=== PATIENT | female | born 1965 | race Hispanic/Latino ===

== ENCOUNTER 2021-06-27 04:34 | Observation (INO) | payer OTHER ==
[2021-06-27 05:39] VITALS: BMI 34.2
[2021-06-27] MEDS ORDERED: Ondansetron PF 4 MG/2 ML Vial IVP PRN (05:49)
[2021-06-27] MEDS ORDERED: Senokot S 8.6-50 MG TAB PO PRN (05:49)
[2021-06-27] MEDS ORDERED: Ondansetron ODT 4 MG TAB PO PRN (05:49)
[2021-06-27] MEDS ORDERED: Acetaminophen 325 MG TAB PO PRN (05:49)
[2021-06-27] MEDS ORDERED: Potassium Chloride 20 MEQ TAB PO SCH (06:00)
[2021-06-27] MEDS ORDERED: FLU VACC QS2021-22(6MOS UP)/PF 60 MCG/0.5 ML SYRINGE IM ONE (06:15)
[2021-06-27] MEDS ORDERED: Levothyroxine Sodium 75 MCG TAB PO SCH (06:30)
[2021-06-27 06:39] LABS: Anion Gap 11 mmol/L (10-20); BUN (Urea Nitrogen) 11 mg/dL (9.8-20.1); Calc. Creatinine Clearance 146 mL/min (70-130); Calcium 8.8 mg/dL (7.8-10.44); Carbon Dioxide 26 mmol/L (22-29); Cardiac Risk 3.8 (Less than 4.5); Chloride 104 mmol/L (98-107); Cholesterol 142 mg/dl (< 200 Desired); Glucose 188 mg/dL (70-105); HDL Cholesterol 37 mg/dL (>60 Neg Risk); LDL Cholesterol, Calculated 83 mg/dL; Magnesium 1.6 mg/dL (1.6-2.6); Potassium 3.2 mmol/L (3.5-5.1); Sodium 138 mmol/L (136-145); Triglycerides 111 mg/dL (Less than 150)
[2021-06-27 06:44] LABS: Troponin I Less than 0.010 ng/mL (< 0.028)
[2021-06-27] MEDS: metFORMIN XR 500 MG TAB PO SCH ×2 (08:58→17:23)
[2021-06-27] MEDS: Metoprolol Tartrate 25 MG TAB PO SCH ×2 (08:59→09:00)
[2021-06-27] MEDS ORDERED: Aspirin 81 mg Enteric Coated Tablet PO SCH ×2 (09:00)
[2021-06-27] MEDS ORDERED: Cholecalciferol 1,000 UNITS (25 MCG) TAB PO SCH (09:00)
[2021-06-27] MEDS ORDERED: FLUoxetine HCl 20 MG CAP PO SCH (09:00)
[2021-06-27] MEDS ORDERED: Gabapentin 300 MG CAP PO SCH (09:00)
[2021-06-27] MEDS ORDERED: pyridOXINE 50 MG (B6) TAB PO SCH (09:00)
[2021-06-27] MEDS ORDERED: Enoxaparin Sodium 40 MG/0.4 ML SYRINGE SC SCH (09:00)
[2021-06-27] MEDS ORDERED: Apixaban 5 MG TAB PO SCH (09:00)
[2021-06-27] MEDS ORDERED: Dextrose 5% in Water 1,000 ML IV PRN (11:27)
[2021-06-27] MEDS ORDERED: Dextrose 50% Abboject 50 ML SYRINGE SLOW IVP PRN (11:27)
[2021-06-27] MEDS ORDERED: Lantus 1000 UNITS/10 ML VIAL SC SCH (11:45)
[2021-06-27] MEDS: HumaLOG 300 UNITS/3 ML VIAL SC PRN ×2 (11:59→17:22)
[2021-06-27 13:02] LABS: Hemoglobin A1c 11.7 % (4.0-6.0)
[2021-06-27 16:49] LABS: SARS-CoV-2 PCR by NAA Not Detected (NotDetected)
[2021-06-27 17:04] VITALS: BP 130/61; TEMP 97.7
[2021-06-27] MEDS ORDERED: Aripiprazole 10 MG TAB PO SCH (21:00)
[2021-06-27] MEDS ORDERED: Atorvastatin Calcium 40 MG TAB PO SCH (21:00)
[2021-06-27] MEDS ORDERED: traZODone HCl 50 MG TAB PO SCH (21:00)
[2021-06-28] MEDS ORDERED: Levothyroxine Sodium 75 MCG TAB PO SCH (06:00)
[2021-06-28] MEDS ORDERED: Lantus 1000 UNITS/10 ML VIAL SC SCH (09:00)
== END 2021-06-27 19:25 | disposition home or self-care (01) ==
LOC: CSHTELE 04:34
PROVIDERS: ADMIT Family Medicine; ATTEND Internal Medicine
DX: R53.1 Weakness (principal); R29.898 Other symptoms and signs involving the musculoskeletal system; R07.89 Other chest pain; I10 Essential (primary) hypertension; E03.9 Hypothyroidism, unspecified; F20.9 Schizophrenia, unspecified; E11.42 Type 2 diabetes mellitus with diabetic polyneuropathy; Z86.73 Personal history of transient ischemic attack (TIA), and cerebral infarction without residual deficits; Z79.899 Other long term (current) drug therapy; Z79.82 Long term (current) use of aspirin; Z79.01 Long term (current) use of anticoagulants; Z79.4 Long term (current) use of insulin; Z86.19 Personal history of other infectious and parasitic diseases; F32.A Depression, unspecified; E66.9 Obesity, unspecified; Z87.891 Personal history of nicotine dependence; E87.6 Hypokalemia; Z20.822 Contact with and (suspected) exposure to COVID-19
CPT/HCPCS: 36416; 70551; 72141; 80061; 83036; 83735; 93005; 93010; 93306; 93880; G0378; J1815; U0003; U0005